=== PATIENT | female | born 1975 | race Caucasian/White ===

== ENCOUNTER 2024-07-12 08:45 | Outpatient (CLI) | payer BC | END 2024-07-12 08:46 | disposition home or self-care (01) | LOC: CSHMAMMO 08:45 | PROVIDERS: ATTEND Advanced Practice Midwife | DX: Z12.31 Encounter for screening mammogram for malignant neoplasm of breast (principal) | CPT/HCPCS: 77063; 77067 ==

== ENCOUNTER 2025-07-13 07:59 | Outpatient (CLI) | payer BC | END 2025-07-13 08:00 | disposition home or self-care (01) | LOC: CSHMAMMO 07:59 | PROVIDERS: ATTEND Nurse Practitioner Family | DX: Z12.31 Encounter for screening mammogram for malignant neoplasm of breast (principal) | CPT/HCPCS: 77063; 77067 ==